=== PATIENT | male | born 1990 | race American Indian/Alaskan Native ===

== ENCOUNTER 2017-04-07 08:28 | Emergency (ER) | payer SELFPAY ==
[2017-04-07 09:02] LABS: Basophils % (Auto) 0.7 % (0.0-1.8); Eosinophils % (Auto) 5.5 % (0.0-4.3); Hematocrit 42.3 % (35.5-45.6); Mean Corpuscular HGB Conc 33 % (32-34); Mean Corpuscular Hemoglobin 31 pg (28-32); Mean Corpuscular Volume 92 fl (84-94); Platelet Count 243 K/mm3 (140-440); Red Blood Count 4.61 M/mm3 (3.65-5.03); White Blood Count 7.2 K/mm3 (4.5-11.0)
[2017-04-07 09:29] LABS: Anion Gap 14 mmol/L; BUN/Creatinine Ratio 16; Blood Urea Nitrogen 13 mg/dL (9-20); Calcium 9.7 mg/dL (8.4-10.2); Carbon Dioxide 30 mmol/L (22-30); Chloride 101.7 mmol/L (98-107); Glucose 91 mg/dL (75-100); Sodium 142 mmol/L (137-145)
--- NOTE | 2017-04-07 23:48 | Emergency Department Report ---
ED Chest Pain HPI - General Chief Complaint: Chest Pain Stated Complaint: CHEST PAIN Time Seen by Provider: 04/07/17 23:48 Source: patient, RN notes reviewed Mode of arrival: Ambulatory Limitations: No Limitations - History of Present Illness Initial Comments: This is a 26-year-old male, the patient is previously known to this provider, patient has no chronic medical conditions, does not take aspirin, does not use cocaine, has no pulmonary embolus or DVT risk factors. Patient recently started working nights, and he reports that he has been having consumed numerous stimulating drinks, but high caffeine content, to make it through the night. He complains of left-sided chest wall discomfort, which has been on and off for a few months, and intermittently associated with some shortness of breath. The pain has been present for months. There is no leg pain, there is no leg swelling, no recent trips greater than 4 hours, no recent hospital admissions, no hematemesis of bright red blood per rectum, no cocaine use, no family history of heart disease, DVT, pulmonary embolus that he is aware of. He thinks his main exacerbating factor is poor sleep. MD Complaint: chest pain -: Gradual Onset: during rest Pain Location: left chest Pain Radiation: none Severity: mild Quality: aching Consistency: intermittent Improves With: rest Worsens With: other (as per history of present illness) re: dyspnea Aspirin use within the Past 7 Days: (0) No - Related Data On Oral Contraceptives: No Allergies Allergy/AdvReac Type Severity Reaction Status Date / Time No Known Allergies Allergy Unverified 04/07/17 08:41 Heart Score - HEART Score History: Slightly suspicious EKG: Normal Age: < 45 Risk factors: No known risk factors Troponin: < normal limit HEART Score: 0 - Critical Actions Critical Actions: 0-3 pts:0.9-1.7%risk of adverse cardiac event.Candidate for discharge ED Review of Systems ROS: Stated complaint: CHEST PAIN Other details as noted in HPI Constitutional: denies: fever Eyes: denies: vision change ENT: denies: epistaxis Respiratory: denies: cough Cardiovascular: chest pain Gastrointestinal: denies: vomiting Genitourinary: as per HPI Musculoskeletal: as per HPI Skin: as per HPI Neurological: as per HPI Psychiatric: as per HPI ED Past Medical Hx - Past Medical History Previous Medical History?: No - Surgical History Past Surgical History?: No - Social History Smoking Status: Current Every Day Smoker ED Physical Exam - General Limitations: No Limitations General appearance: alert, in no apparent distress - Head Head exam: Present: atraumatic, normocephalic - Eye Eye exam: Present: normal appearance, EOMI. Absent: nystagmus - ENT ENT exam: Present: normal exam, normal orophraynx, mucous membranes moist, normal external ear exam - Neck Neck exam: Present: normal inspection, full ROM. Absent: tenderness, meningismus - Respiratory Respiratory exam: Present: normal lung sounds bilaterally. Absent: respiratory distress, wheezes, rales, rhonchi, stridor, chest wall tenderness, accessory muscle use, decreased breath sounds, prolonged expiratory - Cardiovascular Cardiovascular Exam: Present: regular rate, normal rhythm, normal heart sounds. Absent: bradycardia, tachycardia, irregular rhythm, systolic murmur, diastolic murmur, rubs, gallop - GI/Abdominal GI/Abdominal exam: Present: soft, normal bowel sounds. Absent: distended, tenderness, guarding, rebound, rigid, pulsatile mass - Rectal Rectal exam: Present: deferred - Extremities Exam Extremities exam: Present: normal inspection, full ROM, normal capillary refill. Absent: tenderness, pedal edema, joint swelling, calf tenderness - Back Exam Back exam: Present: normal inspection, full ROM. Absent: tenderness, CVA tenderness (R), CVA tenderness (L), muscle spasm, paraspinal tenderness, vertebral tenderness - Neurological Exam Neurological exam: Present: alert, oriented X3, normal gait, other (Extraocular movements intact. Tongue midline. No facial droop. Facial sensation intact to light touch in the V1, V2, V3 distribution bilaterally. 5 and 5 strength in 4 extremities.. Sensation is intact to light touch in 4 extremities.). Absent : motor sensory deficit - Psychiatric Psychiatric exam: Present: normal affect, normal mood - Skin Skin exam: Present: warm, dry, intact, normal color. Absent: rash ED Course Vital Signs 04/07/17 08:30 Temperature 98.3 F Pulse Rate 70 Respiratory 16 Rate Blood Pressure 124/78 O2 Sat by Pulse 99 Oximetry HECTOR score - Hector Score Age > 65: (0) No Aspirin use within the Past 7 Days: (0) No 3 or more CAD Risk Factors: (0) No 2 or more Angina events in past 24 hrs: (0) No Known CAD with more than 50% Stenosis: (0) No Elevated Cardiac Markers: (0) No ST Deviation Greater than 0.5mm: (0) No HECTOR Score: 0 ED Medical Decision Making - Lab Data Result diagrams: 04/07/17 08:43 04/07/17 08:43 Vital Signs 04/07/17 04/08/17 08:30 00:22 Temperature 98.3 F 97.8 F Pulse Rate 70 61 Respiratory 16 20 Rate Blood Pressure 124/78 Blood Pressure 109/59 [Right] O2 Sat by Pulse 99 100 Oximetry - EKG Data -: EKG Interpreted by Me EKG shows normal: sinus rhythm Rate: normal - EKG Data When compared to previous EKG there are: previous EKG unavailable 04/08/17 00:25 Normal sinus, 67 beats per minute, normal axis, poor High left ventricular voltage, not morphologically consistent with STEMI, there is no prior for comparison - Radiology Data Radiology results: image reviewed interpreted by me: X-ray the chest is negative for acute disease. - Medical Decision Making Differential diagnosis: Poor sleep habits, pneumonia, costochondritis, pericarditis, myocarditis Assessment and plan: 26-year-old male, no pulmonary embolus or DVT risk factors , low risk by well's criteria, low risk by HECTOR score, low risk by heart score, perc negative, with atypical chest pain for weeks and months. He is afebrile, with reassuring vital signs, troponin negative 1, as per the [employer] clinical policy, myocardial infarction may be excluded with 1 set of cardiac enzymes if symptoms have been present for greater than 8 hours. His symptoms have been present for months. Bedside ultrasound demonstrates good coordinated ventricular activity, no obvious effusion, good wall motion, patient appears quite comfortable and is playing on a cellular phone. Explained to the patient the importance of proper sleep hygiene, avoidance and abstinence from stimulating caffeinated drinks, and proper work life balance. There does not appear to be an emergent condition at this time, patient can follow-up in outpatient primary care doctor. Critical care attestation.: If time is entered above; I have spent that time in minutes in the direct care of this critically ill patient, excluding procedure time. ED Disposition Clinical Impression: Chest pain, Sleep disturbance Disposition: DC-01 TO HOME OR SELFCARE Is pt being admited?: No Does the pt Need Aspirin: No Condition: Stable Instructions: Chest Pain (ED), Insomnia (ED) Additional Instructions: As we discussed, it is very important to have proper sleep hygiene habits. Avoid consumption of caffeinated substances and stimulants, when sleeping after an overnight shift, turn off all electronic devices, and purchase blackout curtains, or sleep in an area that does not get much sunlight. 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 Return to the ER right away with new pain, worsened pain, migration of pain, fevers, chills, lethargy, irritability, projectile vomiting, change in mental status, inability to tolerate liquid feeds. Referrals: PRIMARY CARE, [Primary Care Provider] - 3-5 Days ANOOP ROCA MD [Staff Physician] - 3-5 Days [facility] [Provider Group] - 3-5 Days [facility] [Provider Group] - 3-5 Days [facility] [Provider Group] - 3-5 Days Forms: Work/School Release Form(ED)
[2017-04-08 00:23] VITALS: BP 109/59
--- NOTE | 2017-04-08 07:42 | XRay Report ---
AP CHEST: HISTORY: chest pain AP view of the chest demonstrates a normal mediastinal and cardiac contour with clear lungs and normal bony and soft tissue structures. IMPRESSION: Unremarkable AP chest.
== END 2017-04-08 01:42 | disposition home or self-care (01) ==
LOC: ED 08:28
DX: R07.89 Other chest pain (principal); G47.9 Sleep disorder, unspecified; F17.210 Nicotine dependence, cigarettes, uncomplicated
CPT/HCPCS: 36415; 71010; 80048; 84484; 85025; 93005; 93010; 99284